=== PATIENT | male | born 1945 | race Caucasian/White ===

== ENCOUNTER 2016-10-13 05:50 | Inpatient (IN) | payer OTHER ==
[2016-10-01 14:39] VITALS: BMI 30.5
[2016-10-13] MEDS ORDERED: ROPIVICAINE 0.2%/MORPH PF/KETOROLAC - 51ML DISP.SYRINGE IA ONE ×3 (07:11→10:02)
[2016-10-13] MEDS ORDERED: TRANEXAMIC ACID 1000 MG/10 ML VIAL ONE ×2 (07:11→09:39)
[2016-10-13] MEDS ORDERED: MIDAZOLAM HCL 2 MG/2 ML SINGLE DOSE VIAL ONE (07:29)
[2016-10-13] MEDS ORDERED: DEXAMETHASONE SOD PHOSPHATE/PF 10 MG/ML SDV ONE (07:29)
[2016-10-13] MEDS ORDERED: GABAPENTIN 300 MG CAPSULE (FP) PO ONE (07:39)
[2016-10-13] MEDS ORDERED: CELECOXIB 200 MG CAPSULE PO ONE (07:39)
[2016-10-13] MEDS ORDERED: TRANEXAMIC ACID 1000 MG/10 ML VIAL IVPUSH ONE ×2 (07:39→13:00)
[2016-10-13] MEDS ORDERED: CEFAZOLIN 2 GM in DEXTROSE 5%-WATER - 50 ML IVPB ONE (07:39)
[2016-10-13] MEDS ORDERED: SUCCINYLCHOLINE CHLORIDE 200 MG/10 ML VIAL ONE (07:44)
[2016-10-13] MEDS ORDERED: BUPIVACAINE HCL/PF 0.5% (5MG/ML) 10 ML VIAL ONE (07:46)
[2016-10-13] MEDS ORDERED: ceFAZolin SODIUM 1 GM VIAL ONE ×2 (08:26→09:39)
[2016-10-13] MEDS ORDERED: PROPOFOL 20 ML ONE ×2 (08:28)
[2016-10-13] MEDS ORDERED: ONDANSETRON 4 MG/2 ML VIAL ONE (08:49)
[2016-10-13] MEDS ORDERED: ACETAMINOPHEN INJECTION 100 ML IVPB ONE (09:13)
[2016-10-13] MEDS ORDERED: PATIENT'S OWN MEDICATION (NON-FORMULARY) (Omeprazole 40 MG) PO SCH (10:00)
[2016-10-13] MEDS ORDERED: MAG HYDROX/AL HYDROX/SIMETH 30 ML UNIT-DOSE CUP PO PRN (10:40)
[2016-10-13] MEDS ORDERED: MAGNESIUM HYDROX 2400MG/30ML ORAL SUSPENSION 30 ML CUP PO PRN (10:40)
[2016-10-13] MEDS ORDERED: LACTATED RINGERS SOLUTION 1,000 ML IV SCH (10:45)
[2016-10-13] MEDS ORDERED: ACETAMINOPHEN 1000 MG/100 ML VIAL (NON FORMULARY) IVPB ONE ×2 (10:50→11:50)
[2016-10-13] MEDS ORDERED: ROPIVACAINE 0.2% 400ML 400 ML ML NR ONE (11:50)
[2016-10-13] MEDS ORDERED: oxyCODONE HCL 5 MG TABLET PO PRN (11:50)
[2016-10-13] MEDS ORDERED: ONDANSETRON 4 MG/2 ML VIAL IVPB PRN (12:44)
[2016-10-13] MEDS ORDERED: PROMETHAZINE HCL 25 MG/1 ML VIAL IVPUSH PRN (12:46)
[2016-10-13] MEDS: LACTATED RINGERS SOLUTION 1,000 ML IV SCH (13:00)
[2016-10-13] MEDS: ATORVASTATIN CA 10 MG TABLET (FP) PO SCH (13:05)
[2016-10-13] MEDS: PANTOPRAZOLE 40 MG TABLET (FP) PO SCH (13:05)
[2016-10-13] MEDS: QUINAPRIL HCL 10 MG TABLET (FP) PO SCH (13:05)
[2016-10-13] MEDS: HYDROCHLOROTHIAZIDE 25 MG TABLET (FP) PO SCH (13:05)
--- NOTE | 2016-10-13 13:14 | CONSULT ---
[id number] for medical management . HISTORY OF PRESENT ILLNESS: Patient is a 71 y/o male with a past medical history of hypertension, hyperlipidemia, osteoarthritis, GERD, kidney stones, and rheumotid arthritis. Patient is s/p left TKR, 10/13/16. Patient report feeling well, he denies any pain and reports some paresthesia to his left lower extremity. patient denies any nausea is tolerating his regular diet. REVIEW OF SYSTEMS: CONSTITUTIONAL: Absent: fever, chills, diaphoresis, generalized weakness, malaise, loss of appetite, weight change HEENT: Absent: rhinorrhea, nasal congestion, throat pain, throat swelling, difficulty swallowing, mouth swelling, ear pain, eye pain, visual changes CARDIOVASCULAR: Absent: chest pain, syncope, palpitations, irregular heart rate, lightheadedness , peripheral edema RESPIRATORY: Absent: cough, shortness of breath, dyspnea with exertion, orthopnea, wheezing, stridor, hemoptysis GASTROINTESTINAL: Absent: abdominal pain, abdominal distension, nausea, vomiting, diarrhea, constipation, melena, hematochezia GENITOURINARY: Absent: dysuria, frequency, urgency, hesitancy, hematuria, flank pain, genital pain MUSCULOSKELETAL: Present: paresthesia to the left knee Absent: myalgia, arthralgia, joint swelling, back pain, neck pain SKIN: Absent: rash, itching, pallor HEMATOLOGIC/IMMUNOLOGIC: Absent: easy bleeding, easy bruising, lymphadenopathy, frequent infections ENDOCRINE: Absent: unexplained weight gain, unexplained weight loss, heat intolerance, cold intolerance NEUROLOGIC: Absent: headache, focal weakness or paresthesias, dizziness, unsteady gait, seizure, mental status changes, bladder or bowel incontinence PSYCHIATRIC: Absent: anxiety, depression, suicidal or homicidal ideation, hallucinations. PHYSICAL EXAMINATION Vital Signs - 24 hr 10/13/16 10/13/16 10/13/16 06:22 10:41 10:45 Temperature 98.4 F 97.5 F L Pulse Rate 80 68 58 L Respiratory 18 18 18 Rate Blood Pressure 138/84 116/66 122/69 O2 Sat by Pulse 100 100 Oximetry (%) 10/13/16 10/13/16 10/13/16 10:50 10:55 11:00 Temperature Pulse Rate 57 L 62 62 Respiratory 18 18 18 Rate Blood Pressure 120/74 120/70 120/62 O2 Sat by Pulse 99 98 99 Oximetry (%) 10/13/16 10/13/16 10/13/16 11:15 11:30 11:45 Temperature Pulse Rate 61 61 61 Respiratory 18 18 18 Rate Blood Pressure 127/73 113/74 118/74 O2 Sat by Pulse 100 96 94 L Oximetry (%) 10/13/16 10/13/16 10/13/16 12:00 12:15 12:30 Temperature Pulse Rate 63 64 67 Respiratory 18 18 18 Rate Blood Pressure 120/73 131/79 124/70 O2 Sat by Pulse 95 94 L 96 Oximetry (%) 10/13/16 12:31 Temperature Pulse Rate 67 Respiratory 18 Rate Blood Pressure 124/70 O2 Sat by Pulse Oximetry (%) PHYSICAL EXAMINATION GENERAL: Awake, alert, and fully oriented, in no acute distress. HEAD: Normal with no signs of trauma. EYES: Pupils equal, round and reactive to light, extraocular movements intact, sclera anicteric, conjunctiva clear. No lid lag. EARS, NOSE, THROAT: Ears normal, nares patent, oropharynx clear without exudates. Moist mucous membranes. NECK: Normal range of motion, supple without lymphadenopathy, JVD, or masses. LUNGS: Breath sounds equal, clear to auscultation bilaterally. No wheezes, and no crackles. No accessory muscle use. HEART: Regular rate and rhythm, normal S1 and S2 without murmur, rub or gallop. ABDOMEN: Soft, nontender, not distended, normoactive bowel sounds, no guarding, no rebound, no masses. No hepatomegaly or splenomegaly. MUSCULOSKELETAL: No bony deformities or tenderness. No CVA tenderness. UPPER EXTREMITIES: 2+ pulses, warm, well-perfused. No cyanosis. No clubbing. Cap refill <2 seconds. No peripheral edema. LOWER EXTREMITIES: 2+ pulses, warm, well-perfused. No calf tenderness. No peripheral edema. LEFT LOWER EXTREMITY: dressing noted to the left anterior knee, clean, dry and intact, ice pack in place, less than 3 second capilary refill, + 3 pedal pulse NEUROLOGICAL: Cranial nerves II-XII intact. Normal speech. Normal gait. PSYCHIATRIC: Cooperative. Good eye contact. Appropriate mood and affect. SKIN: Warm, dry, normal turgor, no rashes or lesions noted. Active Medications Generic Name Dose Route Start Last Admin Trade Name Freq PRN Reason Stop Dose Admin Acetaminophen 650 mg 10/13/16 18:00 Tylenol - PO 10/16/16 17:59 Q6H DARLENE Al Hydroxide/Mg Hydroxide 30 ml 10/13/16 10:40 Mylanta Oral Suspension - PO Q4H PRN DYSPEPSIA Ascorbic Acid 500 mg 10/13/16 22:00 Vitamin C - PO BID [facility] Aspirin 81 mg 10/14/16 10:00 Ecotrin - PO BID [facility] Atorvastatin Calcium 10 mg 10/13/16 10:00 10/13/16 13:05 Lipitor - PO Not Given DAILY [facility] Celecoxib 200 mg 10/14/16 10:00 Celebrex - PO DAILY [facility] Fentanyl 50 mcg 10/13/16 12:41 Sublimaze Injection - IVPUSH 10/16/16 12:42 [id number] PRN PAIN Ferrous Sulfate 325 mg 10/13/16 17:30 Feosol - PO BIDWM [facility] Gabapentin 300 mg 10/13/16 22:00 Neurontin - PO 10/16/16 21:59 BID [facility] Hydrochlorothiazide 25 mg 10/13/16 10:00 10/13/16 13:05 Hctz - PO Not Given DAILY [facility] Cefazolin Sodium/Dextrose 50 mls @ 100 mls/hr 10/13/16 16:00 Ancef 2 Gm Premixed Ivpb - IVPB 10/14/16 00:29 Q8H [facility] Lactated Ringer's 1,000 mls @ 125 mls/hr 10/13/16 10:45 10/13/16 13:01 Lactated Ringers Solution IV 10/14/16 06:00 Not Given ASDIR [facility] Lactated Ringer's 1,000 mls @ 125 mls/hr 10/13/16 12:00 10/13/16 13:00 Lactated Ringers Solution IV Not Given ASDIR [facility] Magnesium Hydroxide 30 ml 10/13/16 10:40 Milk Of Magnesia - PO PRN PRN CONSTIPATION Multivitamins/Minerals/Vitamin C 1 tab 10/14/16 10:00 Tab-A-Vit - PO DAILY [facility] Ondansetron HCl 4 mg 10/13/16 12:44 Zofran Injection IVPB Q6H PRN NAUSEA Oxycodone HCl 10 mg 10/13/16 22:00 Oxycontin - PO 10/16/16 11:50 BID [facility] Oxycodone HCl 5 mg 10/13/16 11:50 Roxicodone - PO 10/16/16 11:51 Q4H PRN PAIN Oxycodone HCl 10 mg 10/13/16 12:45 Roxicodone - PO 10/16/16 12:44 Q4H PRN PAIN Pantoprazole Sodium 40 mg 10/13/16 10:00 10/13/16 13:05 Protonix - PO Not Given DAILY DARLENE Promethazine HCl 12.5 mg 10/13/16 12:46 Phenergan Injection - IVPUSH 10/13/16 18:47 Q6H PRN NAUSEA Quinapril HCl 10 mg 10/13/16 10:00 10/13/16 13:05 Accupril - PO Not Given DAILY [facility] Senna/Docusate Sodium 2 tablet 10/13/16 22:00 Pericolace - PO BID [facility] Sulfasalazine 500 mg 10/13/16 22:00 Azulfidine En-Tabs - PO HS [facility] Sulfasalazine 1,000 mg 10/14/16 07:00 Azulfidine En-Tabs - PO AM [facility] ASSESSMENT/PLAN: 1) ortho: s/p left TKR (10/13/16) - prn pain medication - incentive spirometer - strict monitoring of hgb, continue iron supplements - pt as per ortho regime - continue sulfasalazine, pmh of RA 2) card hypertension - continue accupril and hctz - strict b/p monitoring 3) GI: GERD - continue protonix f/e/n - low sodium diet ppx scd/pt dvt ppx as per orthopedist Dispo: We will continue to follow the patient. Thank you for this consultative opportunity. Visit type - Emergency Visit Emergency Visit: No - New Patient This patient is new to me today: Yes Date on this admission: 10/13/16 - Critical Care Critical Care patient: No
--- NOTE | 2016-10-13 16:02 | OP ---
DATE OF OPERATION: 10/13/2016 SURGEON: Werner Louise MD [employer] PR[employer] OPERATOR: INGE Stauffer III, whose skilled surgical assistance was necessary for the retraction and protection of vital structures, for the handling and implementation of precise and delicate surgical instrumentation as well as the overall safe conveyance of the procedure. ANESTHESIOLOGIST: Genevieve Orozco MD TYPE OF ANESTHESIA: An adductor canal block with an indwelling catheter and a spinal. PREOPERATIVE DIAGNOSIS: Severe left knee osteoarthritis with varus deformity and flexion contracture. POSTOPERATIVE DIAGNOSIS: Severe left knee osteoarthritis with varus deformity and flexion contracture. PROCEDURE: Computer-navigated left total knee replacement. Kefzol was given preoperatively for prophylaxis against infection. Tranexamic acid 1 g was given preoperatively, a 2nd gram of tranexamic acid was given at time of wound closure, a 3rd gram was instilled into the knee at the time of wound closure. Additional Kefzol was given at the time of wound closure. BLOOD LOSS: Approximately 150 to 200 mL. There were no complications. HARDWARE USED: Sp and PureWRX PFC Sigma PCL retaining knee replacement system with a size 5 press-fit femur, a size 5 cemented tibia, a 10-mm polyethylene tray. The patella was left un-resurfaced. Specimens were sent to Pathology. INDICATIONS: The patient is a 71-year-old male with complaints of severe bilateral knee pain for years, recently gotten much worse. His left knee was affecting him much more than the right. He walks with a cane. He describes his pain as terrible. He said that he has difficulty with activities of daily living. He does not take any [id number] pain medications. He has tried viscosupplementation in the past without relief. He has tried Aleve in the past and Advil in the past without relief. He has had physical therapy without relief. He has increased difficulty with going up and down stairs. There are no complaints of back or groin pain and no complaints of numbness or tingling in his toes. Treatment options were reviewed with the patient. We discussed both operative and nonoperative care of his knee osteoarthritis. We discussed the risks and benefits of surgery. After a thorough discussion, patient wished to proceed with surgery. The risks of surgery explained to include but not be limited to infection, stiffness, continued pain, chance that he could have massive blood loss requiring transfusion, chance that he could have a blood clot that could spread from his legs to his lungs and even cause , and this can occur despite anticoagulation, chance that should he develop an infection and it be a complete disaster necessitating removing his knee, placing on long-term IV antibiotics, and chance that should an infection not be curable, he could be left without a knee replacement, and an unlikely but possible scenario should he develop an infection that is life-threatening, may require an amputation, chance that not all of his pain will be relieved, chance that he could have a permanent neurologic injury leaving permanent loss of use of function and permanent pain, and chance that his knee replacement may loosen up sooner than its intended lifespan and may need to be revised. The patient understands this. Patient has identified his left knee as the operative site, which is confirmed with the operating room staff, and he agrees to proceed with the planned procedure. PROCEDURE: After administration of regional nerve block with indwelling catheter in the preoperative holding area, the patient was brought in to the operating room, where spinal anesthetic was administered by anesthesiologist. Tourniquet was placed high on the left leg and the left leg was then prepped and draped in the usual sterile manner. Standard midline incision was made. Of note, the patient started with significant varus as well as loss of extension and flexion contracture. Standard midline incision was made. The incision was approximately 15 cm in length. The incision was carried down through the subcutaneous tissues using electrocautery device and Aquamantys device to maintain hemostasis throughout the procedure. Upon entering the extensor mechanism superiorly at the quadriceps tendon, the incision was carried down through the quadriceps tendon curving medially around the medial retinaculum for later reapproximation. Patella was everted. The patient had severe tricompartmental osteoarthritic changes with the medial and lateral compartments more severely affected than the lateral. A medial capsular release was performed. Menisci were removed. ACL was released, PCL was recessed. Two sets of 4-mm guidepins were then placed in the medial aspect of the proximal tibia and medial aspect of the distal femur, to which computer array were then attached. The hip center of rotation and the patient's bony anatomy were then entered into the computer navigation device. The tibia, then the femur, were machined to correct the patient's varus deformity and flexion contracture. The size 5 femur and a size 5 tibia trial components were then packed in place with a trial 10-mm polyethylene spacer and the knee had full and easy extension, full and easy flexion, with good tracking of the patella with no instability to varus/valgus stress. The trial components were removed. The exposed bony cancellous surfaces were then prepared with the jet lavage and cleaned. Any bone debris was removed. One bag of GrantAdleruy bone cement was then mixed in a vacuum mixing bowl. This was then finger pressurized onto the exposed bony cancellous surface of the proximal tibia as well as precoating under the undersurface of the tibial component. The tibial component was then impacted in place. The femoral component was then impacted in place. The knee was held in extension with a trial polyethylene spacer until the cement had hardened. All excess bone cement was then removed. The knee was taken through a range of motion and found to have full and easy extension, full and easy flexion, with balanced flexion/extension gaps, good tracking of the patella. The trial polyethylene liner was removed. A final polyethylene liner was then impacted in place and found to have full and easy extension and full and easy flexion with good tracking of the patella, balanced flexion and extension gaps. A dilute Betadine solution was instilled into the knee and allowed to sit for 3 minutes. This was then evacuated and the wound was then irrigated once again with copious amounts of antibiotic normal saline solution using the jet lavage. The extensor mechanism was then reapproximated to itself using [id number] interrupted FiberWire and number 1 Vicryl sutures. Subcutaneous tissues were closed with 0 and 2-0 Vicryl sutures and the skin edges were reapproximated with a running 2-0 Stratafix suture with the knee in maximal flexion. The guidepin sites were closed with 4-0 Biosyn and then the wounds were further closed with Dermabond. Aquacel dressings were then applied. An ABD pad was placed and then thigh-high AME stockings were placed on the patient's leg. Of note, during the procedure, thigh-high AME stocking and SCD device was applied to the patient's nonoperative leg throughout the procedure. Postoperatively the patient will be full weightbearing as tolerated, will have DVT prophylaxis with aspirin, early ambulation, sequential compression devices and AME stockings. We are not going to use a Kuamr catheter, for fear of causing a dreaded urinary tract infection, if at all possible. WERNER LOUISE M.D. [id number]
[2016-10-13] MEDS: CEFAZOLIN 2 GM/D5W 50 ML IVPB SCH (16:30)
[2016-10-13] MEDS: ACETAMINOPHEN 325 MG TABLET (FP) PO SCH (17:22)
[2016-10-13] MEDS: FERROUS SO4 325 MG TABLET (FP) PO SCH (17:22)
[2016-10-13] MEDS ORDERED: PT OWN MED DRAWER 7, Y5N ONE (21:21)
[2016-10-13] MEDS: GABAPENTIN 300 MG CAPSULE (FP) PO SCH (21:27)
[2016-10-13] MEDS: oxyCODONE HCL 10 MG SUSTAINED ACTING TABLET PO SCH (21:28)
[2016-10-13] MEDS: ASCORBIC ACID 500 MG TABLET (FP) PO SCH (21:28)
[2016-10-13] MEDS: SENNOSIDES/DOCUSATE COMBO (SENNA PLUS) TABLET (UD) PO SCH (21:28)
[2016-10-14] MEDS: ACETAMINOPHEN 325 MG TABLET (FP) PO SCH ×4 (00:02→17:09)
[2016-10-14] MEDS: CEFAZOLIN 2 GM/D5W 50 ML IVPB SCH (00:02)
[2016-10-14] MEDS ORDERED: PT OWN MED DRAWER 7, Y5N ONE ×2 (06:02→21:07)
[2016-10-14] MEDS: FERROUS SO4 325 MG TABLET (FP) PO SCH ×2 (08:05→17:11)
[2016-10-14 08:22] LABS: MCHC 34.3 g/dl (32.0-35.9); MEAN CELL VOLUME 99.3 fl (80-96); MEAN PLT VOLUME 8.3 fl (7.5-11.1); PLATELET COUNT 250 K/MM3 (134-434); RDW 12.5 % (11.9-15.9); WHITE BLOOD COUNT 11.6 K/mm3 (4.0-10.0)
[2016-10-14 08:40] LABS: CREATININE 0.7 mg/dl (0.6-1.3)
[2016-10-14] MEDS: PANTOPRAZOLE 40 MG TABLET (FP) PO SCH (09:25)
[2016-10-14] MEDS: ASPIRIN COATED 81 MG TABLET.EC PO SCH ×2 (09:25→21:15)
[2016-10-14] MEDS: ASCORBIC ACID 500 MG TABLET (FP) PO SCH ×2 (09:25→21:15)
[2016-10-14] MEDS: ATORVASTATIN CA 10 MG TABLET (FP) PO SCH (09:25)
[2016-10-14] MEDS: CELECOXIB 200 MG CAPSULE PO SCH (09:25)
[2016-10-14] MEDS: HYDROCHLOROTHIAZIDE 25 MG TABLET (FP) PO SCH (09:26)
[2016-10-14] MEDS: GABAPENTIN 300 MG CAPSULE (FP) PO SCH ×2 (09:26→21:15)
[2016-10-14] MEDS: SENNOSIDES/DOCUSATE COMBO (SENNA PLUS) TABLET (UD) PO SCH ×2 (09:26→21:15)
[2016-10-14] MEDS: oxyCODONE HCL 10 MG SUSTAINED ACTING TABLET PO SCH ×2 (09:26→21:15)
--- NOTE | 2016-10-14 09:36 | PN ---
Progress Note (short form) - Note Progress Note: Orthopedic progress note medically scribed for Dr. Ko who has seen and evaluated the patient at bedside. S: Patient relates pain well controlled. Ambulating with little discomfort, using walker for assisted ambulation. Overall feels well. Denies any numbness/ tingling to either lower extremity. Denies any calf pain or cramping bilaterally , denies: CP/SOB/N/D/V, tolerating diet and voiding without compromise. O: CBC, BMP 10/14/16 07:00 10/14/16 07:00 Vital Signs Period Temp Pulse Resp BP Sys/[place] Pulse Ox Last 24 Hr 97.5 F-98.3 F 57-87 16-21 113-149/62-79 94-100 GEN: patient ambulating in room without compromise. [place]OWLAND/NAD/VSS/Afebrile, color good well appearing and answering all questions appropriately. L Knee: Surgical dressings in place, secure with minimal staining. Range of motion 0-90 with little discomfort. Minor expected postop edema at knee without erythema/effusion/bleeding/discharge. Calf soft non-tender to palpation. Sensation intact to light touch, neurovascularly intact distally, pedal pulses x2 intact. Strength 5/5 EHL/FHL/TA/GS with good dorsi/plantar flexion. A/P: 71M s/p L TKR POD#1 1. Pain control 2. WBAT L LE 3. PT, use walker for ambulation 4. DVT Proph: EC [id number] BID x4 weeks 5. Maintain dressing, may shower, no pools/baths/soaks 6. Elevate and ice to knee as needed 7. Discharge planning 8. Follow up as scheduled
[2016-10-14] MEDS: QUINAPRIL HCL 10 MG TABLET (FP) PO SCH (09:41)
[2016-10-14] MEDS: MULTIVITAMINS (DAILY MVI) TABLET (FP) PO SCH (09:41)
[2016-10-14] MEDS ORDERED: PANTOPRAZOLE 40 MG TABLET (FP) PO SCH (10:00)
--- NOTE | 2016-10-14 11:24 | PN ---
Physical Exam: SUBJECTIVE: Patient seen and examined, reports feeling well, denies any chest pain or shortness of breath, does report a dull ache to the left lower extremity. OBJECTIVE: Patient is a 71 y/o male with a past medical history of hypertension , hyperlipidemia, osteoarthritis, GERD, kidney stones, and rheumotid arthritis. Patient is s/p left TKR, 10/13/16, POD #1.. Vital Signs Period Temp Pulse Resp BP Sys/[place] Pulse Ox Last 24 Hr 97.8 F-98.3 F 61-87 16-21 113-149/70-79 94-96 GENERAL: The patient is awake, alert, and fully oriented, in no acute distress. HEAD: Normal with no signs of trauma. EYES: PERRL, extraocular movements intact, sclera anicteric, conjunctiva clear. No ptosis. ENT: Ears normal, nares patent, oropharynx clear without exudates, moist mucous membranes. NECK: Trachea midline, full range of motion, supple. LUNGS: Breath sounds equal, clear to auscultation bilaterally, no wheezes, no crackles, no accessory muscle use. HEART: Regular rate and rhythm, S1, S2 without murmur, rub or gallop. ABDOMEN: Soft, nontender, nondistended, normoactive bowel sounds, no guarding, no rebound, no hepatosplenomegaly, no masses. EXTREMITIES: 2+ pulses, warm, well-perfused, no edema. LEFT LOWER EXTREMITY: dressing to the anterior knee, clean dry and intact, less than 3 second capillary refill, + 3 pedal pulse NEUROLOGICAL: Cranial nerves II through XII grossly intact. Normal speech, gait not observed. PSYCH: Normal mood, normal affect. SKIN: Warm, dry, normal turgor, no rashes or lesions noted Laboratory Results - last 24 hr 10/14/16 10/14/16 07:00 07:00 WBC 11.6 H RBC 4.06 Hgb 13.8 Hct 40.3 MCV 99.3 H MCHC 34.3 RDW 12.5 Plt Count 250 MPV 8.3 Sodium 139 Potassium 3.6 Chloride 104 Carbon Dioxide 25 Anion Gap 10 BUN 16 Creatinine 0.7 Random Glucose 117 H Calcium 9.0 Active Medications Generic Name Dose Route Start Last Admin Trade Name Freq PRN Reason Stop Dose Admin Acetaminophen 650 mg 10/13/16 18:00 10/14/16 05:37 Tylenol - PO 10/16/16 17:59 650 mg Q6H DARLENE Administration Al Hydroxide/Mg Hydroxide 30 ml 10/13/16 10:40 Mylanta Oral Suspension - PO Q4H PRN DYSPEPSIA Ascorbic Acid 500 mg 10/13/16 22:00 10/14/16 09:25 Vitamin C - PO 500 mg BID DARLENE Administration Aspirin 81 mg 10/14/16 10:00 10/14/16 09:25 Ecotrin - PO 81 mg BID DARLENE Administration Atorvastatin Calcium 10 mg 10/13/16 10:00 10/14/16 09:25 Lipitor - PO 10 mg DAILY DARLENE Administration Celecoxib 200 mg 10/14/16 10:00 10/14/16 09:25 Celebrex - PO 200 mg DAILY DARLENE Administration Fentanyl 50 mcg 10/13/16 12:41 Sublimaze Injection - IVPUSH 10/16/16 12:42 [id number] PRN PAIN Ferrous Sulfate 325 mg 10/13/16 17:30 10/14/16 08:05 Feosol - PO Not Given BIDWM [facility] Gabapentin 300 mg 10/13/16 22:00 10/14/16 09:26 Neurontin - PO 10/16/16 21:59 300 mg BID DARLENE Administration Hydrochlorothiazide 25 mg 10/13/16 10:00 10/14/16 09:26 Hctz - PO 25 mg DAILY DARLENE Administration Lactated Ringer's 1,000 mls @ 125 mls/hr 10/13/16 12:00 10/13/16 13:00 Lactated Ringers Solution IV Not Given ASDIR DARLENE Magnesium Hydroxide 30 ml 10/13/16 10:40 Milk Of Magnesia - PO PRN PRN CONSTIPATION Multivitamins/Minerals/Vitamin C 1 tab 10/14/16 10:00 10/14/16 09:41 Tab-A-Vit - PO 1 tab DAILY [facility] Administration Ondansetron HCl 4 mg 10/13/16 12:44 Zofran Injection IVPB Q6H PRN NAUSEA Oxycodone HCl 10 mg 10/13/16 22:00 10/14/16 09:26 Oxycontin - PO 10/16/16 11:50 10 mg BID DARLENE Administration Oxycodone HCl 5 mg 10/13/16 11:50 10/14/16 08:03 Roxicodone - PO 10/16/16 11:51 5 mg Q4H PRN Administration PAIN Oxycodone HCl 10 mg 10/13/16 12:45 Roxicodone - PO 10/16/16 12:44 Q4H PRN PAIN Pantoprazole Sodium 40 mg 10/13/16 10:00 10/14/16 09:25 Protonix - PO 40 mg DAILY DARLENE Administration Quinapril HCl 10 mg 10/13/16 10:00 10/14/16 09:41 Accupril - PO 10 mg DAILY DARLENE Administration Senna/Docusate Sodium 2 tablet 10/13/16 22:00 10/14/16 09:26 Pericolace - PO 2 tablet BID DARLENE Administration Sulfasalazine 500 mg 10/13/16 22:00 10/13/16 21:28 Azulfidine En-Tabs - PO 500 mg HS DARLENE Administration Sulfasalazine 1,000 mg 10/14/16 07:00 10/14/16 06:08 Azulfidine En-Tabs - PO 1,000 mg AM DARLENE Administration ASSESSMENT/PLAN: 1) ortho: s/p left TKR (10/13/16) - prn pain medication - incentive spirometer - continue iron supplements - pt as per ortho regime - continue sulfasalazine, pmh of RA 2) card hypertension - continue accupril and hctz - strict b/p monitoring 3) GI: GERD - continue protonix f/e/n - low sodium diet ppx scd/pt dvt ppx as per orthopedist Dispo: We will continue to follow the patient. Thank you for this consultative opportunity. Visit type - Emergency Visit Emergency Visit: Yes ED Registration Date: 10/13/16 Care time: The patient presented to the Emergency Department on the above date and was hospitalized for further evaluation of their emergent condition. - New Patient This patient is new to me today: No - Critical Care Critical Care patient: No - Discharge Referral Referred to [facility] Med P.C[facility] No
--- NOTE | 2016-10-14 11:48 | PN ---
Progress Note (short form) - Note Progress Note: 71M POD1 s/p left TKR under spinal anesthetic with continuous adductor canal catheter and selective tibial block for post operative pain. Pt states pain is well controlled, AVSS, reports no anesthetic complications. Catheter site is clean and dry. Sensory and motor function is intact in both lower extremities.
[2016-10-14] MEDS: LACTATED RINGERS SOLUTION 1,000 ML IV SCH (12:26)
[2016-10-14] MEDS: oxyCODONE HCL 5 MG TABLET PO PRN (16:20)
[2016-10-15] MEDS: oxyCODONE HCL 5 MG TABLET PO PRN ×2 (00:43→09:43)
[2016-10-15] MEDS: ACETAMINOPHEN 325 MG TABLET (FP) PO SCH ×2 (00:44→05:35)
[2016-10-15] MEDS ORDERED: PT OWN MED DRAWER 7, Y5N ONE ×2 (05:34→09:06)
[2016-10-15 06:21] VITALS: BP 143/73; PULSE 89; TEMP 99.1
[2016-10-15] MEDS: FERROUS SO4 325 MG TABLET (FP) PO SCH (08:00)
[2016-10-15 08:49] LABS: MCH 34.2 pg (25.7-33.7); MCHC 34.1 g/dl (32.0-35.9); MEAN CELL VOLUME 100.3 fl (80-96); MEAN PLT VOLUME 8.4 fl (7.5-11.1); PLATELET COUNT 221 K/MM3 (134-434); RDW 12.5 % (11.9-15.9)
[2016-10-15] MEDS: CELECOXIB 200 MG CAPSULE PO SCH (09:41)
[2016-10-15] MEDS: ASPIRIN COATED 81 MG TABLET.EC PO SCH (09:41)
[2016-10-15] MEDS: QUINAPRIL HCL 10 MG TABLET (FP) PO SCH (09:41)
[2016-10-15] MEDS: HYDROCHLOROTHIAZIDE 25 MG TABLET (FP) PO SCH (09:42)
[2016-10-15] MEDS: GABAPENTIN 300 MG CAPSULE (FP) PO SCH (09:42)
[2016-10-15] MEDS: SENNOSIDES/DOCUSATE COMBO (SENNA PLUS) TABLET (UD) PO SCH (09:42)
[2016-10-15] MEDS: ATORVASTATIN CA 10 MG TABLET (FP) PO SCH (09:42)
[2016-10-15] MEDS: MULTIVITAMINS (DAILY MVI) TABLET (FP) PO SCH (09:43)
[2016-10-15] MEDS: oxyCODONE HCL 10 MG SUSTAINED ACTING TABLET PO SCH (09:43)
[2016-10-15] MEDS: PANTOPRAZOLE 40 MG TABLET (FP) PO SCH (09:43)
[2016-10-15] MEDS: ASCORBIC ACID 500 MG TABLET (FP) PO SCH (09:43)
--- NOTE | 2016-10-15 12:06 | PN ---
Progress Note (short form) - Note Progress Note: 71M POD2 s/p L TKR doing well. Adductor canal catheter d/c'd, tip intact. Site clean and dry. Sensory and motor function is intact in bilateral lower extremities.
--- NOTE | 2016-10-15 14:47 | PATH ---
Surgical Pathology Report Patient Name: CECE ALVARADO Med. Rec. #: [id number] /Age/Gender: 1945 (Age: 71) / M Account: [id number] Location: [facility] MED-SUR[facility] Taken: 10/13/2016 Received: 10/13/2016 Reported: 10/15/2016 Physicians: Rosamaria Ko M.D. Specimen(s) Received BONE LEFT KNEE Clinical History Unilateral primary osteoarthritis Final Diagnosis KNEE, LEFT, BONE, TOTAL KNEE REPLACEMENT: DEGENERATIVE JOINT DISEASE. Electronically Signed Debora Dorman M.D. Gross Description Received in formalin, labeled "bone left knee," is a 12.0 x 10.0 x 2.0 cm aggregate of multiple irregular portions of bone and soft tissue. The tibial plateau measures 7.7 x 6.0 x 1.5 cm. There is a 2.8 cm in greatest dimension area of eburnation present. The remaining articular surfaces are christopher-yellow and focally granular. The underlying trabecular bone is yellow and hard. Cover Remover sections are submitted in one cassette, following decalcification. 10/14/201610/14/2016
== END 2016-10-15 12:46 | disposition home health service (06) | DRG 470 ==
LOC: FM/S 05:50
PROVIDERS: ADMIT Orthopaedic Surgery; ATTEND Orthopaedic Surgery
PROC: 0SRD0J9 Replacement of Left Knee Joint with Synthetic Substitute, Cemented, Open Approach (ICD-10-PCS; principal; 2016-10-13 08:43)
DX: M17.12 Unilateral primary osteoarthritis, left knee (principal); I10 Essential (primary) hypertension; E78.5 Hyperlipidemia, unspecified; K21.9 Gastro-esophageal reflux disease without esophagitis; M06.80 Other specified rheumatoid arthritis, unspecified site; Z87.442 Personal history of urinary calculi
CPT/HCPCS: 36415; 73560-TC-LT; 80048; 85027; 88304-TC; 88311-TC; 94010; 94760; 97116-GP; 97162-PG

== ENCOUNTER 2024-09-02 23:49 | Emergency (ER) | payer OTHER, MEDICARE ==
[2024-09-03 00:06] VITALS: BP 127/75; PULSE 94; RESP 16; TEMP 97.2; BMI 30.5
== END 2024-09-03 01:27 | disposition home or self-care (01) ==
LOC: FER 23:49
DX: S60.221A Contusion of right hand, initial encounter (principal); W01.198A Fall on same level from slipping, tripping and stumbling with subsequent striking against other object, initial encounter
CPT/HCPCS: 73110-TC-RT-FY; 73130-TC-RT-FY; 99283-25